=== PATIENT | female | born 1980 | race Caucasian/White ===

== ENCOUNTER → 2020-06-26 | Outpatient (CLI) | payer OTHER ==
[~2020-06-26] MED LIST: CYCLOBENZAPRINE10 MG PO; MACROBID 100 M100 MG PO; PRENATAL VITAM1 EAC8 PO; ROXICODONE TAB 55 MG PO
== END ==
LOC: LAB 15:05
DX: Z32.01 Encounter for pregnancy test, result positive (principal)
CPT/HCPCS: 36415; 84702

== ENCOUNTER 2020-08-14 15:49 | Observation (INO) | payer OTHER ==
[~2020-08-14] VITALS: Ht 170.2 cm; Wt 88.0 kg
[2020-08-14 17:44] LABS: HEMOGLOBIN 13.2 gm/dl (12.3-15.3); RED BLOOD COUNT 4.44 M/UL (4.00-5.10); WHITE BLOOD COUNT 10.4 K/UL (4.5-11.0)
[2020-08-14 18:06] LABS: BUN/CREATININE RATIO 13 (0-10)
[2020-08-14] MEDS ORDERED: PRENATAL VITAM1 EAC8 PO (21:51)
[2020-08-15 04:32] LABS: HEMOGLOBIN 11.8 gm/dl (12.3-15.3); WHITE BLOOD COUNT 9.7 K/UL (4.5-11.0)
[2020-08-15 04:33] LABS: RED BLOOD COUNT 3.99 M/UL (4.00-5.10)
[2020-08-15] MEDS ORDERED: CYCLOBENZAPRINE10 MG PO (14:44)
[2020-08-15] MEDS ORDERED: MACROBID 100 M100 MG PO (14:44)
[2020-08-15] MEDS ORDERED: ROXICODONE TAB 55 MG PO (14:44)
== END 2020-08-15 15:08 | disposition home or self-care (01) ==
LOC: ER1 15:49 → CDU 19:37 → OB 08-15 10:09
PROVIDERS: Obstetrics & Gynecology; Physician Assistant; ADMIT Obstetrics & Gynecology
DX: O26.891 Other specified pregnancy related conditions, first trimester (principal); O34.219 Maternal care for unspecified type scar from previous cesarean delivery; O13.1 Gestational [pregnancy-induced] hypertension without significant proteinuria, first trimester; O99.351 Diseases of the nervous system complicating pregnancy, first trimester; O99.841 Bariatric surgery status complicating pregnancy, first trimester; R10.9 Unspecified abdominal pain; G43.009 Migraine without aura, not intractable, without status migrainosus; N85.8 Other specified noninflammatory disorders of uterus; Z3A.13 13 weeks gestation of pregnancy; Z20.822 Contact with and (suspected) exposure to COVID-19; Z79.899 Other long term (current) drug therapy; Z87.442 Personal history of urinary calculi
CPT/HCPCS: 80053; 81001; 85025; 86140; 87086; 96374; 96375; 96376; 99285; C9113; G0378; J0696; J2405; J2765; J7030; U0002

== ENCOUNTER 2021-02-05 11:34 | Inpatient (IN) | payer OTHER ==
[~2021-02-05] VITALS: Ht 170.2 cm; Wt 99.8 kg
[2021-02-05 12:44] LABS: HEMOGLOBIN 11.5 gm/dl (12.3-15.3); RED BLOOD COUNT 4.06 M/UL (4.00-5.10); WHITE BLOOD COUNT 7.1 K/UL (4.5-11.0)
[2021-02-06] MEDS ORDERED: IBUPROFEN600 MG PO (13:29)
[2021-02-06] MEDS ORDERED: FERROUS SULFAT325 MG PO (13:29)
[2021-02-06] MEDS ORDERED: COLACE 100MG C100 MG PO (13:29)
[2021-02-06] MEDS ORDERED: HYDROCODON-ACE1 EAC4 PO (13:29)
[2021-02-07 04:41] LABS: HEMOGLOBIN 7.9 gm/dl (12.3-15.3)
== END 2021-02-07 18:14 | disposition home or self-care (01) | DRG 788 ==
LOC: GENOP 11:34 → CDU 18:00 → OB 18:00
PROVIDERS: Obstetrics & Gynecology; ADMIT Obstetrics & Gynecology
PROC: 3E0234Z Introduction of Serum, Toxoid and Vaccine into Muscle, Percutaneous Approach (ICD-10-PCS; 2021-02-06)
PROC: 10D00Z1 Extraction of Products of Conception, Low, Open Approach (ICD-10-PCS; principal; 2021-02-06 11:10)
DX: O34.211 Maternal care for low transverse scar from previous cesarean delivery (principal); O36.5930 Maternal care for other known or suspected poor fetal growth, third trimester, not applicable or unspecified; Z3A.38 38 weeks gestation of pregnancy; Z37.0 Single live birth; Z20.822 Contact with and (suspected) exposure to COVID-19; Z98.84 Bariatric surgery status; O76 Abnormality in fetal heart rate and rhythm complicating labor and delivery; Z23 Encounter for immunization
CPT/HCPCS: 36415; 81001; 82800; 85014; 85018; 85025; 85461; 86850; 86900; 86901; 90715; C9113; J0690; J1885; J2274; J2370; J2405; J2590; J2790; J3010; J7120; U0002